=== PATIENT | female | born 2005 | race Two or more races ===

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

== ENCOUNTER 2023-03-09 16:04 | Emergency (ER) | payer OTHER ==
[~2023-03-09] VITALS: Ht 158.8 cm; Wt 59.9 kg
[~2023-03-09 16:04] MED LIST changes: +PEPCID AC20 MG PO
== END 2023-03-09 19:14 | disposition home or self-care (01) ==
LOC: EMR PED 16:04
DX: R53.81 Other malaise (principal); J10.1 Influenza due to other identified influenza virus with other respiratory manifestations; Z20.822 Contact with and (suspected) exposure to COVID-19

== ENCOUNTER 2023-04-09 11:11 | Emergency (ER) | payer OTHER ==
[~2023-04-09] VITALS: Ht 154.9 cm; Wt 59.0 kg
== END 2023-04-09 12:24 | disposition home or self-care (01) ==
LOC: EMR PED 11:11
DX: B02.39 Other herpes zoster eye disease (principal)

== ENCOUNTER 2023-07-22 16:48 | Emergency (ER) | payer OTHER ==
[~2023-07-22] VITALS: Ht 157.5 cm; Wt 63.5 kg
[2023-07-22] MEDS ORDERED: ANTICONCEPTIVAS (17:02)
[2023-07-23] MEDS ORDERED: KETO10TA2 PO (00:43)
== END 2023-07-23 01:04 ==
LOC: ER 16:48 → EMR PED 17:02 → ER 17:02 → EMR PED 07-23 01:04
PROVIDERS: Emergency Medicine Pediatric Emergency Medicine
DX: N93.9 Abnormal uterine and vaginal bleeding, unspecified (principal); R10.9 Unspecified abdominal pain
CPT/HCPCS: 36415; 74177; 76830; Q9965

== ENCOUNTER 2025-06-24 11:52 | Emergency (ER) | payer OTHER ==
[~2025-06-24] VITALS: Ht 157.5 cm; Wt 64.4 kg
[~2025-06-24 11:52] MED LIST changes: +ANTICONCEPTIVAS; +KETO10TA2 PO; +NORFLEX100MG PO; +PROBIOTIC1 EAC2 PO; +ZOFRAN8 MG PO; +ZOVIRAX800 MG PO
[2025-06-24] MEDS ORDERED: KETOROLAC TROMETHAMINE 30 MG VIAL IM STA (12:36)
[2025-06-24] MEDS ORDERED: ORPHENADRINE CITRATE 30 MG/ML AMPUL IM STA (12:37)
[2025-06-24 12:39] VITALS: BP 120/81; O2SAT 99
== END 2025-06-24 17:47 | disposition home or self-care (01) ==
LOC: ER 12:17
DX: M54.2 Cervicalgia (principal); M54.59 Other low back pain; M54.6 Pain in thoracic spine; R07.9 Chest pain, unspecified; V43.52XA Car driver injured in collision with other type car in traffic accident, initial encounter; Y93.89 Activity, other specified; Y92.413 State road as the place of occurrence of the external cause